=== PATIENT | male | born 1965 | race Caucasian/White ===

== ENCOUNTER 2024-07-06 08:49 | Outpatient (CLI) | payer OTHER, SELFPAY ==
--- NOTE | 2024-07-06 08:51 | EST_ITS ---
Patient Info Name: Brett Soria Age: 58 years : 1965 Gender: Male Ht: 71 in Wt: 245 lbs BSA: 2.40 m2 HR: 70 bpm BP: 127 / 81 mmHg Exam Date: 07/06/2024 9:04 AM Exam Location: Echo Lab Patient Status: Outpatient Admit Date: 07/06/2024 Staff Ordering Physician: Andre Flores DO Attending Provider: Andre Flores DO Exercise Technologist: Hina Joyner [facility] Exercise Physician: Andre Flores DO Exam Type: CA stress test treadmill Study Info Indications R06.09 - Other forms of dyspnea A treadmill exercise stress test was performed. Summary 1. 1. Negative Cyril exercise stress test for ischemic ST changes by ECG criteria. 2. 2. Good functional capacity, achieving 10 METs of workload. 3. 3. Hypertensive response to exercise. 4. 4. Appropriate HR response to exercise. 5. 5. Appropriate HR recovery at 1 minute post exercise. 6. 6. No imaging with stress testing. 7. 7. Patient informed of the above results. Protocol: Cyril Stress ECG Details Stage: REST Duration (min): 0 min : 55 sec Speed (mph): 0.0 Grade (%): 0 HR (bpm): 65 SBP (mmHg): 127 DBP (mmHg): 81 METS: --- Stage: REST Duration (min): 4 min : 0 sec Speed (mph): 0.0 Grade (%): 0 HR (bpm): 82 SBP (mmHg): 127 DBP (mmHg): 81 METS: --- Stage: STAGE 1 Duration (min): 1 min : 0 sec Speed (mph): 1.7 Grade (%): 10 HR (bpm): 73 SBP (mmHg): 127 DBP (mmHg): 81 METS: --- Stage: STAGE 1 Duration (min): 2 min : 0 sec Speed (mph): 1.7 Grade (%): 10 HR (bpm): 68 SBP (mmHg): 127 DBP (mmHg): 81 METS: --- Stage: STAGE 1 Duration (min): 2 min : 18 sec Speed (mph): 0.0 Grade (%): 0 HR (bpm): 69 SBP (mmHg): 127 DBP (mmHg): 81 METS: --- Stage: RECOVERY Duration (min): 0 min : 7 sec Speed (mph): 0.0 Grade (%): 0 HR (bpm): 69 SBP (mmHg): 127 DBP (mmHg): 81 METS: --- Stage: REST Duration (min): 1 min : 9 sec Speed (mph): 0.0 Grade (%): 0 HR (bpm): 69 SBP (mmHg): 132 DBP (mmHg): 84 METS: --- Stage: REST Duration (min): 1 min : 46 sec Speed (mph): 0.0 Grade (%): 0 HR (bpm): 71 SBP (mmHg): 132 DBP (mmHg): 84 METS: --- Stage: STAGE 1 Duration (min): 1 min : 0 sec Speed (mph): 1.7 Grade (%): 10 HR (bpm): 89 SBP (mmHg): 132 DBP (mmHg): 84 METS: --- Stage: STAGE 1 Duration (min): 2 min : 0 sec Speed (mph): 1.7 Grade (%): 10 HR (bpm): 102 SBP (mmHg): 132 DBP (mmHg): 84 METS: --- Stage: STAGE 1 Duration (min): 3 min : 0 sec Speed (mph): 1.7 Grade (%): 10 HR (bpm): 107 SBP (mmHg): 209 DBP (mmHg): 90 METS: --- Stage: STAGE 2 Duration (min): 1 min : 0 sec Speed (mph): 2.5 Grade (%): 12 HR (bpm): 111 SBP (mmHg): 209 DBP (mmHg): 90 METS: --- Stage: STAGE 2 Duration (min): 2 min : 0 sec Speed (mph): 2.5 Grade (%): 12 HR (bpm): 117 SBP (mmHg): 213 DBP (mmHg): 67 METS: --- Stage: STAGE 2 Duration (min): 3 min : 0 sec Speed (mph): 2.5 Grade (%): 12 HR (bpm): 123 SBP (mmHg): 213 DBP (mmHg): 67 METS: --- Stage: STAGE 3 Duration (min): 1 min : 0 sec Speed (mph): 3.4 Grade (%): 14 HR (bpm): 131 SBP (mmHg): 232 DBP (mmHg): 77 METS: --- Stage: STAGE 3 Duration (min): 2 min : 0 sec Speed (mph): 3.4 Grade (%): 14 HR (bpm): 137 SBP (mmHg): 232 DBP (mmHg): 77 METS: --- Stage: STAGE 3 Duration (min): 2 min : 12 sec Speed (mph): 3.4 Grade (%): 14 HR (bpm): 139 SBP (mmHg): 232 DBP (mmHg): 77 METS: --- Stage: RECOVERY Duration (min): 0 min : 48 sec Speed (mph): 0.0 Grade (%): 0 HR (bpm): 123 SBP (mmHg): 237 DBP (mmHg): 101 METS: --- Stage: RECOVERY Duration (min): 1 min : 47 sec Speed (mph): 0.0 Grade (%): 0 HR (bpm): 98 SBP (mmHg): 237 DBP (mmHg): 101 METS: --- Stage: RECOVERY Duration (min): 2 min : 48 sec Speed (mph): 0.0 Grade (%): 0 HR (bpm): 90 SBP (mmHg): 237 DBP (mmHg): 101 METS: --- Stage: RECOVERY Duration (min): 3 min : 30 sec Speed (mph): 0.0 Grade (%): 0 HR (bpm): 90 SBP (mmHg): 184 DBP (mmHg): 73 METS: --- Rest HR: 82 bpm Peak HR: 76 bpm Rest Sys BP: 127 mmHg Peak Sys BP: 237 mmHg Max Pred HR: 163 bpm % Max Pred HR: 47 % Target HR: 139 bpm Max RPP: 18,012 bpm*mmHg Pascual Score: 0 BP Response: Patient exhibited a hypertensive response with stress Termination Reason: Reached target heart rate or workload Cardiac Symptoms: Shortness of breath Max ST Seg Deviation: 0.50 mm Total Time: 2 min : 18 sec Rest Diehl BP: 81 mmHg Peak Diehl BP: 101 mmHg Angina Score: None Total METS: 10.3 Resting ECG Sinus rhythm. Stress ECG No ST changes. Arrhythmias None. Report Signatures
--- OUTSIDE RECORDS SUMMARY | 2024-07-06 09:19 | XMS_ITS | Clinical Summary ---
Author Organization [facility] Address [address] [place] [address] Care Team Providers Care Thermodynamics Professor Name Role Phone Unavailable Primary Care Provider Unavailabl e Source Comments [facility],non-owned Affiliates and Associated Physician Practices is amultiple site organization consisting of ambulatory clinics and hospital sitesin [place], [place], [place] and [place]. This disclosure is being madepursuant to the Care Everywhere program and may not contain all information available regarding this patient. 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 Gender Identity Not on file Sexual Orientation Not on file Plan of Treatment Health Maintenance Due Date Last Done Comments COLOGUARD (AGES 45-75) - COL ON CA SCREENING 1965 COLON MONITORING 1965 COLONOSCOPY - COLON CA SCREENING 1965 CT COLONOGRAPHY - COLON CA SCREENING 1965 Colorectal Cancer Screening 1965 FIT - COLON CA SCREENING 1965 FLEX SIG - COLON CA SCREENING 1965 LIPID TESTING 1965 HIV SCREENING 1981 HEPATITIS C SCREENING 11/01/1984 DTAP/TDAP/TD VACCINES (1 - Tdap) 1985 HEPATITIS B VACCINE (1 of 3 - 19+ 3-dose series) 1985 PNEUMOCOCCAL VACCINE 50+ (1 of 1 - PCV) 2016 ZOSTER VACCINE (1 of 2) 2016 COVID-19 VACCINE ( - 2023-2 5 season) 2023 DEPRESSION SCREENING 03/10/2024 INFLUENZA VACCINE (Season Ended) 2024 HIB VACCINE Aged Out No longer eligi ble based on patient's age to complete this topic HPV VACCINE Aged Out No longer eligi ble based on patient's age to complete this topic MENINGOCOCCAL (Group B) VACC INE SHARED DECISION-MAKING Aged Out No longer eligibl e based on patient's age to complete this topic MENINGOCOCCAL GROUPS A/C/Y/W VACCINE Aged Out No longer eligible b ased on patient's age to complete this topic Insurance
--- OUTSIDE RECORDS SUMMARY | 2024-07-06 09:19 | XMS_ITS | Clinical Summary ---
Author Organization [facility] Address [address] [place] [address] Care Team Providers Care Occupational Health And Safety Officer Name Role Phone Reymundo Willis MD Unavailable [phone] Mohan Durand MD Unavailable Gerda Rangel Primary Care Provider [phone] Allergies No known active allergies Medications metoprolol succinate 50 MG 24 hr tablet Take 1 tablet (50 mg total) by mouth daily. 1 09/24/2016 Active losartan (COZAAR) 50 MG tablet Take 1 tablet (50 mg total) by mouth daily. 30 tablet 05/24/2024 Active Active Problems Problem Noted Date Diagnosed Date Dyslipidemia 10/15/2016 Paroxysmal atrial fibrillation ([facility]/HCC [facility]) Encounters Date Type Department Care Team Description 05/24/2024 12:47 PM CDT - 05/24/2024 1:30 PM CDT Emergency [facility] Emergency Room [address] [place] [address] Shilpi Chaudhry MD Hypertension Discharge Disposition: Home or Self Care (Routine Discharge) 05/24/2024 Travel 05/18/2024 2:30 PM CDT - 05/18/2024 11:59 PM CDT Hospital [place] [address] [place] [address] Ayleen Peguero FNP Discharge Disposition: Home or Self Care (Routine Discharge) 05/18/2024 Travel from Last 3 Months Family History Medical History Relation Comments Stroke Mother Relation Status Comments Father (Age 75) Mother (Age 63) Social History Tobacco Use Types Packs/Day Years Used Date Smoking Tobacco: Former Cigarettes Q uit: 1999 Smokeless Tobacco: Never Tobacco Cessation:Counseling Given: Not Answered Alcohol Use Standard Drinks/Week Comments Yes 21 (1 standard drink = 0.6 oz pu re alcohol) 2 - 3 vodka per day Sex and Gender Information Value Date Recorded Sex Assigned at Male 05/24/2024 1:08 PM CDT Legal Sex Male 10:52 PM CDT Gender Identity Not on file Sexual Orientation Not on file 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 Not on file Not on file Last Filed Vital Signs Vital Sign Reading Time Taken Comments Blood Pressure 135/80 05/24/2024 2:30 PM CDT Pulse 68 05/24/2024 2:30 PM CDT Temperature 37.1 C (98.8 F) 05/24/2024 12:50 PM CDT Respiratory Rate 14 05/24/2024 2:30 PM CDT Oxygen Saturation 96% 05/24/2024 2:30 PM CDT Inhaled Oxygen Concentration - - Weight 108.9 kg (240 lb) 05/24/2024 12:50 PM CDT Height 180.3 cm (5' 11 ) 05/24/2024 12:50 PM CDT Body Mass Index 33.47 05/24/2024 12:50 PM CDT Plan of Treatment Health Maintenance Due Date Last Done Comments Colorectal Cancer Screening Colonoscopy (10 Years) 1965 Annual Physical 1969 Hepatitis C 1984 DTaP, Tdap and Td Vaccines ( 1 - Tdap) 1985 Hepatitis B Vaccines (1 of 3 - 19+ 3-dose series) 1985 Pneumococcal Vaccine: 50+ Years (1 of 1 - PCV) 2016 Zoster Vaccines (1 of 2) 2016 COVID-19 Vaccine (2023-2 5 season) 2023 07/21/2020, 06/23/2020 Meningococcal B Vaccine Aged Out No l onger eligible based on patient's age to complete this topic Meningococcal Vaccine Aged Out No arianna miladys eligible based on patient's age to complete this topic RSV Immunizations Under 20 Months Aged Out No longer eligible b ased on patient's age to complete this topic Procedures Procedure Name Priority Date/Time Associated Diagnosis Comments XR CHEST PORTABLE STAT 05/24/2024 2:[address] HEAD WO CON STAT 05/24/2024 2:22 PM CDT LIPASE STAT 05/24/2024 12:51 PM CDT TROPONIN, QUANT STAT 05/24/2024 12:51 PM CDT COMPREHENSIVE METABOLIC PANEL STAT 05/24/2024 12:51 PM CDT PARTIAL THROMBOPLASTIN TIME,PTT STAT 05/24/2024 12:51 PM CDT PROTHROMBIN TIME, VENOUS STAT 05/24/2024 12:51 PM CDT CBC W/DIFF AUTOMATED STAT 05/24/2024 12:51 PM CDT ECG 12-LEAD Routine 05/24/2024 12:50 PM CDT CTA CHEST STAT 05/18/2024 3:29 PM CDT Pulmonary embolism (CMS/HCC HHS/HCC) Shortness of breath CREATININE WHOLE BLOOD Routine 2:23 PM CDT from Last 3 Months Results * XR CHEST PORTABLE (05/24/2024 2:28 PM CDT) Anatomical Region Laterality Modality Chest Radiographic Zayda ging 05/24/2024 2:31 PM CDT Impressions 05/24/2024 2:33 PM CDT =====IMPRESSION:===== Possible mild atelectasis versus scar in the left costophrenic angle. No patchy infiltrate. No CHF Ordered By: SHILPI CHAUDHRY Interpreted By: Reema Christopher, 05/24/2024 2:31 PM Narrative 05/24/2024 2:33 PM CDT [place] [id number] [facility] [place] [address] EXAMINATION: CHEST RADIOGRAPH SINGLE VIEW Exam date/time: 05/24/2024 2:20 PM Reason For Exam: chest pressure Hypertension. Headache. Comparison: December 12, 2016 Technique: Upright AP view of the chest Findings: Possible mild atelectasis in the left costophrenic angle.. No patchy infiltrate. No pleural effusion or pneumothorax. No CHF. Borderline heart size Procedure Note Rafael Christopher MD - 05/24/2024 [facility] [address] [place] [address] EXAMINATION: CHEST RADIOGRAPH SINGLE VIEW Exam date/time: 05/24/2024 2:20 PM Reason For Exam: chest pressure Hypertension. Headache. Comparison: December 12, 2016 Technique: Upright AP view of the chest Findings: Possible mild atelectasis in the left costophrenic angle.. No patchy infiltrate. No pleural effusion or pneumothorax. No CHF. Borderline heart size =====IMPRESSION:===== Possible mild atelectasis versus scar in the left costophrenic angle. No patchy infiltrate. No CHF Ordered By: SHILPI CHAUDHRY Interpreted By: Reema Christopher, 05/24/2024 2:31 PM us Shilpi Chaudhry MD GENERAL IMAGING Final Result * CT HEAD WO CON (05/24/2024 2:22 PM CDT) Anatomical Region Laterality Modality Head Computed Tomogra phy 05/24/2024 2:24 PM CDT Impressions 05/24/2024 2:25 PM CDT IMPRESSION: No CT evidence of an acute intracranial abnormality. Ordered By: SHILPI CHAUDHRY Interpreted By: Merlin Mendoza MD, 05/24/2024 2:24 PM Narrative 05/24/2024 2:25 PM CDT [facility] [address] [place] [id number] Examination: CT HEAD WO CON, 05/24/2024 1:06 PM. Technique: Computed tomographic images of the head were obtained without intravenous contrast. Additional coronal and sagittal reformatted images were generated at a separate workstation. A dose lowering technique was used for this procedure, which may include, but is not limited to, dose reduction technique, automated exposure control, the use of iterative reconstruction, and ALARA (As Low As Reasonably Achievable) / Image Gently techniques. Clinical history: hypertension, headache Comparison: None Available Findings: There is no acute intracranial hemorrhage. There is no extra-axial fluid collection. Preserved solis-white matter differentiation. The ventricles are normal in size. The basal cisterns appear normal. Orbital contents appear normal. Paranasal sinuses are otherwise well aerated. Mild mucosal thickening involving the inferior portion right maxillary sinus. Mastoid air cells are well aerated. There is no acute fracture nor destructive process of the visualized osseous structures. Procedure Note Merlin Mendoza MD - 05/24/2024 [facility] [address] [place] [place] [id number] Examination: CT HEAD WO CON, 05/24/2024 1:06 PM. Technique: Computed tomographic images of the head were obtained withoutintravenous contrast. Additional coronal and sagittal reformatted imageswere generated at a separate workstation. A dose lowering technique wasused for this procedure, which may include, but is not limited to, dosereduction technique, automated exposure control, the use of iterativereconstruction, and ALARA (As Low As Reasonably Achievable) / Image Gentlytechniques. Clinical history: hypertension, headache Comparison: None Available Findings: There is no acute intracranial hemorrhage. There is no extra-axial fluidcollection. Preserved solis-white matter differentiation. The ventriclesare normal in size. The basal cisterns appear normal. Orbital contentsappear normal. Paranasal sinuses are otherwise well aerated. Mild mucosalthickening involving the inferior portion right maxillary sinus. Mastoidair cells are well aerated. There is no acute fracture nor destructiveprocess of the visualized osseous structures. IMPRESSION: No CT evidence of an acute intracranial abnormality. Ordered By: SHILPI CHAUDHRY Interpreted By: Merlin Mendoza MD, 05/24/2024 2:24 PM Shilpi Chaudhry MD CT Final Result * (ABNORMAL) PARTIAL THROMBOPLASTIN TIME,PTT (05/24/2024 12:51 PM CDT) [facility] PTT 39.9(H) 27.0 - 36.8 SEC 05/24/2024 1:18 PM CDT [facility] 05/24/2024 12:5 1 PM CDT Shilpi Chaudhry MD LABORATORY Final Result Performing Organization Address [facility]/ZIP Co de Phone Number [facility] [address] [place] [address], [place] [phone] * PROTIME/INR, VENOUS (05/24/2024 12:51 PM CDT) [facility] PROTIME 12.1 9.1 - 12.4 SEC 05/24/2024 1:18 PM CDT [facility] INR 1.0 05/24/2024 1:18 PM CDT [facility] Comment: Recommend INR ranges for Oral Anticoagulant Therapy: Mechanical Cardiac Values 2.5-3.5 All others indication 2.0-3.0 05/24/2024 12:5 1 PM CDT us Shilpi Chaudhry MD LABORATORY Final Result Performing Organization Address [facility]/ZIP Co de Phone Number [facility] [address] [place] [address], [place] [phone] * COMPREHENSIVE METABOLIC PANEL (05/24/2024 12:51 PM CDT) [facility] GLUCOSE 86 70 - 99 MG/DL 05/24/2024 1:20 PM [facility] BUN 9 7 - 18 MG/DL 05/24/2024 1:20 PM [facility] CREATININE S/P/B 0.86 0.7 - 1.3 MG/DL 05/24/2024 1:20 PM [facility] SODIUM S/P/B 138 136 - 145 MMOL/L 05/24/2024 1:20 PM [facility] POTASSIUM S/P/B 4.3 3.5 - 5.1 MMOL/L 05/24/2024 1:20 PM [facility] CHLORIDE S/P/B 102 100 - 108 MMOL/L 05/24/2024 1:20 PM [facility] CO2 26.8 21 - 32 MMOL/L 05/24/2024 1:20 PM [facility] CALCIUM S/P/B 9.2 8.5 - 10.1 MG/DL 05/24/2024 1:20 PM [facility] BILIRUBIN TOTAL S/P/B 0.7 0.2 - 1.2 MG/DL 05/24/2024 1:20 PM [facility] TOTAL PROTEIN S/P/B 7.4 6.4 - 8.2 G/DL 05/24/2024 1:20 PM [facility] ALBUMIN S/P/B 3.9 3.4 - 5.0 G/DL 05/24/2024 1:20 PM [facility] AST 34 15 - 37 U/L 05/24/2024 1:20 PM [facility] ALT 54 16 - 60 U/L 05/24/2024 1:20 PM [facility] ALKALINE PHOSPHATASE S/P/B 55 50 - 136 U/L 05/24/2024 1:20 PM CDT [facility] ANION GAP 9.2 5 - 15 MMOL/L 05/24/2024 1:20 PM CDT [facility] BUN CREATININE RATIO 10.5 6 - 26 05/24/2024 1:20 PM CDT [facility] A/G RATIO 1.1 1.0 - 2.0 RATIO 05/24/2024 1:20 PM CDT [facility] GFR ESTIMATE >90 >90 ML/MIN/1.7 3 M2 05/24/2024 1:20 PM CDT [facility] Comment: NOTE: eGFR is not calculated for patients <18 years of age or gender unknown. This is an estimated GFR calculation using the new CKD EPI creatinine equation without race and so does not require a correction factor for race. This estimated GFR should not be used for calculating drug doses. 05/24/2024 12:5 1 PM CDT us Shilpi Chaudhry MD LABORATORY Final Result [facility] [address] [place] [address], [place] [phone] * (ABNORMAL) CBC W/DIFF AUTOMATED (05/24/2024 12:51 PM CDT) WBC 6.78 4.4 - 11.0 x10'3/uL 05/24/2024 1:10 PM CDT [facility] RBC 4.87 4.50 - 5.90 x10'6/uL 05/24/2024 1:10 PM CDT [facility] HGB 16.6 14.0 - 17.5 G/DL 05/24/2024 1:10 PM CDT [facility] HCT 48.7 41.5 - 50.4 % 05/24/2024 1:10 PM CDT [facility] MCV 100.0(H) 80.0 - 96.0 FL 05/24/2024 1:10 PM CDT [facility] MCH 34.1(H) 26.5 - 31.4 PG 05/24/2024 1:10 PM CDT [facility] MCHC 34.1 31.9 - 34.8 G/DL 05/24/2024 1:10 PM CDT [facility] RDW 13.6 12.3 - 14.3 % 05/24/2024 1:10 PM CDT [facility] PLT 182 151 - 353 x10'3/uL 05/24/2024 1:10 PM CDT [facility] MPV 9.8 9.7 - 11.9 FL 05/24/2024 1:10 PM CDT [facility] RBC MORPHOLOGY NORMAL 05/24/2024 1:10 PM CDT [facility] PLT MORPH. NORMAL 05/24/2024 1:10 PM CDT [facility] WBC MORPHOLOGY NORMAL 05/24/2024 1:10 PM CDT [facility] LYMPHOCYTES % 18.9 15.8 - 45.0 % 05/24/2024 1:10 PM CDT [facility] NEUTROPHILS % 66.5 42.1 - 71.9 % 05/24/2024 1:10 PM CDT [facility] MONOCYTES % 11.7 5.7 - 12.5 % 05/24/2024 1:10 PM CDT [facility] EOSINOPHILS 1.6 0.0 - 5.6 % 05/24/2024 1:10 PM CDT [facility] BASOPHILS 1.0 0.0 - 1.3 % 05/24/2024 1:10 PM CDT [facility] ABS. NEUTROPHILS 4.51 1.40 - 6.00 x10'3/uL 05/24/2024 1:10 PM CDT [facility] IMMATURE GRANS % 0.3 0.0 - 0.5 % 05/24/2024 1:10 PM CDT [facility] ABS. LYMPHOCYTES 1.28 0.80 - 4.70 x10'3/uL 05/24/2024 1:10 PM CDT [facility] 05/24/2024 12:5 1 PM CDT us Shilpi Chaudhry MD LABORATORY Final Result Performing Organization Address [facility]/ZIP Co de Phone Number [facility] [address] [place] [address], [place] [phone] * TROPONIN, QUANT (05/24/2024 12:51 PM CDT) TROPONIN I HIGH SENSITIVITY 36 0 - 75 ng/L 05/24/2024 1:19 PM CDT [facility] Comment: HIGH DOSES OF BIOTIN, TROPONIN-SPECIFIC AUTOANTIBODIES, AND ANTIBODY THERAPY CONTAINING HAMA MAY INTERFERE WITH THIS TEST RESULT. CORRELATION TO CLINICAL HISTORY AND PRESENTATION RECOMMENDED. 05/24/2024 12:5 1 PM CDT Shilpi Chaudhry MD LABORATORY Final Result [facility] [address] [place] [address], [place] [phone] * LIPASE (05/24/2024 12:51 PM CDT) LIPASE 37 16 - 77 UNITS/L 05/24/2024 1:20 PM CDT [facility] 05/24/2024 12:5 1 PM CDT us Shilpi Chaudhry MD LABORATORY Final Result [facility] [address] [place] [address], [place] [phone] * ECG 12 lead (05/24/2024 12:50 PM CDT) 05/24/2024 12:5 0 PM CDT Narrative [facility] ([facility]) RAD - 05/27/2024 6:41 PM CDT [facility] Test Date: 2024-05-24 Pat Name: JARROD SORIA Department: 85 Room: Gender: Male Rotary Operator: : 1965 Requested By: SHILPI CHAUDHRY Order Number: [id number] Reading MD: Villa Perea Measurements Intervals [place] Rate: 66 P: 37 KS: 147 QRS: -21 QRSD: 109 T: -5 QT: 376 QTc: 394 Interpretive Statements SINUS RHYTHM BORDERLINE LEFT AXIS DEVIATION [QRS AXIS < -20] INCOMPLETE RIGHT BUNDLE BRANCH BLOCK [90+ ms QRS DURATION, TERMINAL R IN V1/V2, 40+ ms S IN I/aVL/V4/V5/V6] ST DEVIATION AND MODERATE T-WAVE ABNORMALITY, CONSIDER ANTERIOR ISCHEMIA [-0.1+ mV T-WAVE IN V3/V4] Compared to ECG 12/13/2016 04:08:13 No significant changes Procedure Note Villa Perea MD - 05/27/2024 [facility] Test Date: 2024-05-24 Pat Name: JARROD SORIA Department: 85 Room: Gender: Male Rotary Operator: : 1965 Requested By: SHILPI CHAUDHRY Order Number: [id number] Reading MD: Villa Perea Measurements Intervals [place]son Rate: 66 P: 37 KS: 147 QRS: -21 QRSD: 109 T: -5 QT: 376 QTc: 394 Interpretive Statements SINUS RHYTHM BORDERLINE LEFT AXIS DEVIATION [QRS AXIS < -20] INCOMPLETE RIGHT BUNDLE BRANCH BLOCK [90+ ms QRS DURATION, TERMINAL RIN V1/V2, 40+ ms S IN I/aVL/V4/V5/V6] ST DEVIATION AND MODERATE T-WAVE ABNORMALITY, CONSIDER ANTERIOR ISCHEMIA [-0.1+ mV T-WAVE IN V3/V4] Compared to ECG 12/13/2016 04:08:13 No significant changes us Shilpi Chaudhry MD ECG ORDERABLES Final Result [facility] ([facility]) RAD * CTA CHEST (05/18/2024 3:29 PM CDT) Anatomical Region Laterality Modality Chest Computed Tomogra phy 05/18/2024 3:41 PM CDT Impressions 05/18/2024 3:47 PM CDT IMPRESSION: 1. There is no acute pulmonary embolism to the first subsegmental pulmonary artery level. 2. Mild bilateral bronchial wall thickening, which can be seen with small airway infection/inflammation or reactive airway disease. 3. The main pulmonary artery is dilated measuring up to 3.7 cm, which can be seen with pulmonary hypertension. 4. Cardiomegaly. 5. Scattered colonic diverticulosis without evidence of acute inflammation. Ordered By: AYLEEN PEGUERO Interpreted By: Michele Bosch MD, 05/18/2024 3:41 PM Narrative 05/18/2024 3:47 PM CDT [facility] [address] [place] [address] PROCEDURE: CTA CHEST. HISTORY: Evaluate for pulmonary embolism. Shortness of breath. TECHNIQUE: Contrast enhanced helical CT pulmonary angiography was then performed (Isovue- 370, 75 mL). Routine transaxial and post-processed (sagittal and coronal MPR) reformations of the acquired data sets were obtained. Standard 3-D (MIP) reformations of the acquired data sets were also obtained. A dose lowering technique was used for this procedure, which may include, but is not limited to, dose reduction technique, automated exposure control, the use of iterative reconstruction, and ALARA (As Low As Reasonably Achievable) / Image Gently techniques. COMPARISON: None. PULMONARY CTA FINDINGS: This is a diagnostic quality helical CT pulmonary angiogram. There is no acute pulmonary embolism to the first subsegmental pulmonary artery level. OTHER FINDINGS: Support Devices: None. Heart/Pericardium/Great Vessels: Cardiac size is enlarged. Calcific coronary artery atherosclerosis cannot be accurately evaluated on this contrast-enhanced exam. There is no pericardial effusion. There is mild to moderate thoracic aortic and branch vessel atherosclerosis, portions calcific. The main pulmonary artery is dilated measuring up to 3.7 cm.. The mid ascending thoracic aorta measures up to 3.9 cm Pleural Spaces: The pleural spaces are clear. Mediastinum/Kita: There is no mediastinal or hilar lymph node enlargement. Neck Base/Chest Wall/Diaphragm/Upper Abdomen: There is no supraclavicular or axillary lymph node enlargement. Prominent left axillary lymph node measuring up to 9 mm, likely reactive. Scattered colonic diverticulosis without evidence of acute inflammation.. Mild degenerative change is present in the spine. No aggressive osseous lesions identified. There is a hooklike configuration of the celiac artery, which can be seen in median arcuate ligament compression. Lungs/Central Airways: The trachea and central airways are clear normal in caliber. There is bilateral dependent atelectasis. There is bilateral bronchial wall thickening. No focal consolidation. No suspicious pulmonary nodules are identified. Procedure Note Michele Bosch MD - 05/18/2024 [facility] [address] [facility] [place] [address] PROCEDURE: CTA CHEST. HISTORY: Evaluate for pulmonary embolism. Shortness of breath. TECHNIQUE: Contrast enhanced helical CT pulmonary angiography was thenperformed (Isovue-370, 75 mL). Routine transaxial and post-processed(sagittal and coronal MPR) reformations of the acquired data sets wereobtained. Standard 3-D (MIP) reformations of the acquired data sets werealso obtained. A dose lowering technique was used for this procedure, which may include,but is not limited to, dose reduction technique, automated exposurecontrol, the use of iterative reconstruction, and ALARA (As Low AsReasonably Achievable) / Image Gently techniques. COMPARISON: None. PULMONARY CTA FINDINGS: This is a diagnostic quality helical CT pulmonaryangiogram. There is no acute pulmonary embolism to the first subsegmentalpulmonary artery level. OTHER FINDINGS: Support Devices: None. Heart/Pericardium/Great Vessels: Cardiac size is enlarged. Calcific coronary artery atherosclerosis cannot be accuratelyevaluated on this contrast-enhanced exam. There is no pericardial effusion. There is mild to moderate thoracic aortic and branch vesselatherosclerosis, portions calcific. The main pulmonary artery is dilated measuring up to 3.7 cm.. The midascending thoracic aorta measures up to 3.9 cm Pleural Spaces: The pleural spaces are clear. Mediastinum/Kita: There is no mediastinal or hilar lymph nodeenlargement. Neck Base/Chest Wall/Diaphragm/Upper Abdomen: There is no supraclavicularor axillary lymph node enlargement. Prominent left axillary lymph nodemeasuring up to 9 mm, likely reactive. Scattered colonic diverticulosiswithout evidence of acute inflammation.. Mild degenerative change ispresent in the spine. No aggressive osseous lesions identified. There is ahooklike configuration of the celiac artery, which can be seen in medianarcuate ligament compression. Lungs/Central Airways: The trachea and central airways are clear normalin caliber. There is bilateral dependent atelectasis. There is bilateralbronchial wall thickening. No focal consolidation. No suspicious pulmonarynodules are identified. IMPRESSION: 1. There is no acute pulmonary embolism to the first subsegmentalpulmonary artery level. 2. Mild bilateral bronchial wall thickening, which can be seen with smallairway infection/inflammation or reactive airway disease. 3. The main pulmonary artery is dilated measuring up to 3.7 cm, which canbe seen with pulmonary hypertension. 4. Cardiomegaly. 5. Scattered colonic diverticulosis without evidence of acuteinflammation. Ordered By: AYLEEN PEGUERO Interpreted By: Michele Bosch MD, 05/18/2024 3:41 PM Ayleen Peguero HAND HEEL SEAT FITTER CT Final Resul t * CREATININE WHOLE BLOOD (05/18/2024 2:23 PM CDT) CREATININE WHOLE BLOOD 1 0.6 - 1.2 MG/DL 05/19/2024 2:09 AM CDT [facility] 05/18/2024 2:23 PM CDT us Ayleen Peguero HAND HEEL SEAT FITTER LABORATORY Final Resul t [facility] [address] [place] [address], [place] [phone] from Last 3 Months Insurance Care Teams Occupational Health And Safety Officer Relationship Specialty Start Date End Date Gerda Rangel PA [address] [place] [id number] PCP - General PHYSICIAN DIE TRY OUT WORKER STAMPING 03/22/24 Reymundo iWllis MD [facility] [address] [address] [place] Records Analyst CARDIOVASCULAR DISEASE 10/07/16 Mohan Durand MD [facility] [address] [address] EP Records Analyst CLINICAL CARDIAC ELECTROPHYSIOLOGY 11/05/16
--- OUTSIDE RECORDS SUMMARY | 2024-07-06 09:19 | XMS_ITS | Encounter Summary ---
Author Organization [facility] Address [address] [facility] [place] [address] Care Team Providers Care Wire Inserter Name Role Phone Unavailable Primary Care Provider Unavailabl e Encounter Details Date Type Department Care Team (Late st Contact Info) Description 01/25/2020 Lab Requisition [facility] D[facility] [address] [place] [address] Jenniffer Kee MD [address] [place] [address] Social History Tobacco Use Types Packs/Day Years Used Date Smoking Tobacco: Never Assessed Sex and Gender Information Value Date Recorded Sex Assigned at Not on file Legal Sex Male 3:43 PM GUIDE DOG TRAINER Gender Identity Not on file Sexual Orientation Not on file documented as of this encounter Plan of Treatment Not on file documented as of this encounter Procedures Procedure Name Priority Date/Time Associated Diagnosis Comments DERMATOPATHOLOGY Routine 01/24/2020 12:0 0 AM [employer]IDE DOG TRAINER documented in this encounter Results * DERMATOPATHOLOGY (01/24/2020 12:00 AM GUIDE DOG TRAINER) Case Report Dermatopathology Report Case: [id number] Authorizing Provider: Jenniffer Kee MD Collected: 01/24/2020 12:00 AM Ordering Location: [facility] Received: 01/25/2020 12:32 PM Pathologist: Sindhu Baker MD Specimen: Skin, left scalp 0 2:40 PM [employer]IDE [employer]G TRAINER DERMATOPATHOLOGY LABORATORY Final Diagnosis Specimen A. 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 0 2:40 PM [facility] DERMATOPATHOLOGY LABORATORY Gross Description Specimen A: Received is one formalin filled container labeled with the patient's name and designated left scalp. The specimen consists of an excision of soft yellow tissue submitted in 5 pieces measuring [id number], [id number], [id number], [id number], & [id number]. The specimens are serially sectioned with access services representative sections submitted in 1 cassette. Jar 1. 0 2:40 PM [facility] DERMATOPATHOLOGY LABORATORY Microscopic Description Specimen A. SKIN, left scalp: There are typical adipocytes with minimal fibrous trabeculae. 0 2:40 PM [facility] DERMATOPATHOLOGY LABORATORY Disclaimer An external and internal positive and negative controls are appropriate for the histochemical, immunohistochemical and immunofluorescence stain(s) in this case (if any), except where stated explicitly. The performance characteristics of the stain(s) cited in this report were developed and its performance characteristic determined by the Dermatopathology Laboratory at [facility], directed by Dr. Pauline Garaz. These tests need not be, and therefore are not, approved by the [place] Food and Drug Administration. The tests are used for clinical purposes. Billing Codes Specimen Charges Stain Charges 26709 1 0 2:40 PM [facility] DERMATOPATHOLOGY LABORATORY Embedded Images 0 2:40 PM [facility] DERMATOPATHOLOGY LABORATORY Pathology/Cytolog y TISSUE SPECIMEN FROM SKIN / Unknown 01/24/2020 01/25/2020 12:32 PM GUIDE DOG TRAINER Jenniffer Kee MD LAB - PATHOLOGY/CYTOLOGY ORDERA BLES Final Result DERMATOPATHOLOGY LABORATORY [facility] - Department of Dermatology [address] [place] [address], [facility] [phone] documented in this encounter Visit Diagnoses Not on filedocumented in this encounter
--- NOTE | 2024-07-06 09:59 | ECHO_ITS ---
Patient Info Name: Brett Soria Age: 58 years : 1965 Gender: Male Ht: 71 in Wt: 245 lbs BSA: 2.40 m2 HR: 79 bpm BP: 149 / 96 mmHg Technical Quality: Fair Exam Date: 07/06/2024 10:03 AM Exam Location: Echo Lab Patient Status: Outpatient Admit Date: 07/06/2024 Staff Ordering Physician: Andre Flores DO Product Management Consultant: Alina Martins RDCS Attending Provider: Andre Flores DO Referring Physician: Mark HALEY; Exam Type: CA echo doppler color flow Study Info Indications R06.09 - Other forms of dyspnea Complete two-dimensional, color flow and Doppler transthoracic echocardiogram is performed. Summary 1. Complete two-dimensional, color flow and Doppler transthoracic echocardiogram is performed. 2. Left ventricular chamber dimension is normal. 3. Left ventricular systolic function is normal, estimated at 60-65%. 4. The left ventricular diastolic function is normal. 5. E/e' 7 is not elevated. Left Ventricle E/e' 7 is not elevated. Left ventricular chamber dimension is normal. Left ventricular systolic function is normal, estimated at 60-65%. The left ventricular diastolic function is normal. Right Ventricle Right ventricular chamber dimension is normal. Right ventricular systolic function is normal. Left Atria Left atrial chamber dimension is normal. Right Atria Right atrial chamber dimension is normal. Aortic Valve The aortic valve is trileaflet. There is no aortic valve stenosis. There is no aortic valve regurgitation. Pulmonic Valve There is no pulmonic regurgitation. Mitral Valve There is no mitral valve stenosis. There is no mitral valve regurgitation. Tricuspid Valve There is no tricuspid valve regurgitation. Pericardium/Pleural There is no pericardial effusion. Inferior Vena Cava Normal inferior vena cava with >50% collapse upon inspiration consistent with normal right atrial pressure, 5 mmHg. Aorta The aortic root size at the sinus of Valsalva is normal. Left Ventricular Outflow Tract Name Value Normal LVOT 2D LVOT Diameter 2.2 cm LVOT Doppler LVOT Peak Gradient 5 mmHg LVOT Mean Gradient 3 mmHg LVOT VTI 19 cm LVOT VTI/AV VTI Ratio 0.9 LVOT Stroke Volume 72 ml LVOT CO 5.7 l/min LVOT CI 2.4 l/min/m2 Pulmonic Valve Name Value Normal RVOT Doppler RVOT Peak Gradient 4 mmHg PV Doppler PV Peak Gradient 5 mmHg Mitral Valve Name Value Normal MV Doppler MV Decel [place] 267 cm/s2 MV PHT 66 ms MV Area (PHT) 3.3 cm2 4.0-5.0 MV Diastolic Function MV E Peak Velocity 61 cm/s MV A Peak Velocity 50 cm/s MV E/A 1.2 MV Decel Time 228 ms Tricuspid Valve Name Value Normal Estimated PAP/RSVP RA Pressure 5 mmHg <=5 Aorta Name Value Normal Ascending Aorta Ao Root Diameter (MM) 3.6 cm Ao Root Diam Index (MM) 1.5 cm/m2 Aortic Valve Name Value Normal AV Doppler AV Peak Velocity 135 cm/s AV Peak Gradient 7 mmHg AV Mean Gradient 4 mmHg AV VTI 20 cm AV Area (Cont Eq VTI) 3.5 cm2 >=3.0 AV Area (Cont Eq Robert) 3.1 cm2 AV Regurgitation 2D LVOT Area 3.8 cm2 Ventricles Name Value Normal LV Dimensions 2D/MM IVS Diastolic Thickness (2D) 1.1 cm 0.6-1.0 LVID Diastole (2D) 5.1 cm 4.2-5.8 LVIW Diastolic Thickness (2D) 1.1 cm 0.6-1.0 LVID Systole (2D) 3.5 cm 2.5-4.0 LVOT Diameter 2.2 cm LV Mass (2D Cubed) 219.74 g 88.00-224.00 LV Mass Index (2D Cubed) 92 g/m2 49-115 Relative Wall Thickness (2D) 0.43 LV Fractional Shortening/Ejection Fraction 2D/MM LV Fractional Shortening (2D) 32 % 25-43 LV EF (2D Teicholz) 60 % 52-72 LV Diastolic Volume (4C MOD) 71 ml LV EF (4C MOD) 51 % LV Diastolic Volume (2C MOD) 76 ml LV EF (2C MOD) 59 % LV Diastolic Volume (BP MOD) 74 ml 62-150 LV Diastolic Volume Index (BP MOD) 31 ml/m2 34-74 LV Systolic Volume (BP MOD) 34 ml 21-61 LV Systolic Volume Index (BP MOD) 14 ml/m2 11-31 LV EF (BP MOD) 54 % 52-72 LV Diastolic Length (4C) 8.3 cm LV Systolic Length (4C) 7.0 cm LV Stroke Volume (4C MOD) 37 ml Atria Name Value Normal LA Dimensions LA Dimension (MM) 3.7 cm 3.0-4.1 LA Volume (4C A-L) 29 ml LA Volume (BP A-L) 35 ml RA Dimensions RA Area (4C) 12.0 cm2 <=18.0 Report Signatures
== END 2024-07-06 08:50 | disposition home or self-care (01) ==
PROVIDERS: PCP Physician Assistant Medical; Visit Provider Internal Medicine Cardiovascular Disease
DX: R07.9 Chest pain, unspecified (principal); R06.09 Other forms of dyspnea
CPT/HCPCS: 93017; 93306